=== PATIENT | male | born 1990 | race Caucasian/White ===

== ENCOUNTER → 2022-02-22 15:25 | Outpatient (BNVA) | payer BC, SELFPAY | PROVIDERS: Visit Provider Podiatrist Foot & Ankle Surgery | DX: M25.871 Other specified joint disorders, right ankle and foot (principal); M24.571 Contracture, right ankle | CPT/HCPCS: 73630 ==

== ENCOUNTER 2022-02-22 16:04 | Outpatient (CLI) | payer BC, SELFPAY | END 2022-02-22 16:05 | disposition home or self-care (01) | LOC: SPT 16:04 | PROVIDERS: Visit Provider Podiatrist Foot & Ankle Surgery | DX: Z46.89 Encounter for fitting and adjustment of other specified devices (principal); M79.671 Pain in right foot | CPT/HCPCS: 97760; L4397 ==

== ENCOUNTER → 2022-07-19 15:41 | Outpatient (BNVA) | payer BC, SELFPAY | PROVIDERS: Referring Provider Nurse Practitioner Family; Visit Provider Specialist | DX: S89.92XA Unspecified injury of left lower leg, initial encounter (principal); X58.XXXA Exposure to other specified factors, initial encounter; M17.12 Unilateral primary osteoarthritis, left knee; E66.01 Morbid (severe) obesity due to excess calories; Z68.44 Body mass index [BMI] 60.0-69.9, adult | CPT/HCPCS: 73560; 73565 ==

== ENCOUNTER 2022-07-31 12:32 | Outpatient (CLI) | payer BC, SELFPAY ==
--- NOTE | 2022-07-31 12:45 | MR_ITS ---
WS: [id number] MRI LEFT KNEE NONCONTRAST TECHNIQUE: Axial PD, coronal PD fat sat, coronal PD, sagittal PD, and sagittal PD fat-sat images obta ined. CLINICAL INFORMATION: left knee pain, rule out ACL tear COMPARISON: None. FINDINGS: Distal quadriceps and patella tendons are intact. Mild thinning of the ACL which may be due to prior chronic partial tear. Suggestion of a small partial tear at the distal tibial insertion. Normal PCL. Normal lateral meniscus. Radial tear involving the posterior horn medial meniscus extending to the me niscal root. Mild peripheral extrusion of the medial meniscus. Lateral subluxation of the patella whi ch may be positional. Recommend correlation for patellar instability. Medial and lateral retinaculum appear intact. Mild chondromalacia patella. Normal medial and lateral collateral ligaments. Normal po pliteal fossa. Mild soft tissue edema about the knee. MR/MR knee LT wo con* [id number] IMPRESSION: 1. Mild thinning of the ACL which may be due to prior chronic partial tear. Coon ggestion of a small partial tear at the distal tibial insertion. Normal PCL. 2. Radial tear involving the posterior horn medial meniscus extending to the m eniscal root. Blunting of the posterior horn with peripheral extrusion. 3. Normal medial and lateral collateral ligaments. 4. Mild chondromalacia patella. Slight lateral subluxation of the patella may be due to positioning. Recommend correlation for patellar instability. 5. Small suprapatellar effusion. Outbridge grading: grade II: blister-like swelling/fraying of articular cartila ge extending to surface
== END 2022-07-31 12:33 | disposition home or self-care (01) ==
PROVIDERS: PCP Nurse Practitioner Family; Visit Provider Specialist
DX: M25.562 Pain in left knee (principal); S83.242A Other tear of medial meniscus, current injury, left knee, initial encounter; X58.XXXA Exposure to other specified factors, initial encounter; M22.42 Chondromalacia patellae, left knee
CPT/HCPCS: 73721

== ENCOUNTER 2023-04-24 21:07 | Emergency (ER) | payer BC, SELFPAY ==
[2023-04-24 21:15] VITALS: BP 163/83; PULSE 110; RESP 17; TEMP 36.6; O2SAT 95; BMI 60.5
--- NOTE | 2023-04-24 21:19 | ED_ITS ---
HPI - URI/Sore Throat General: Chief Complaint: Upper Respiratory Infection Stated Complaint: [facility] Time Seen by Provider: 04/24/23 21:15 History of Present Illness: 32-year-old male patient comes in today for illness x 4 days. Patient appears nontoxic. Patient appears in no acute distress. Patient reports sore throat and nasal drainage. Patient is use [id number] medicines with minimal relief. Review of Systems General: Reports: 10 or more systems reviewed and unremarkable except in HPI and below Physical Exam Const: COMMON NORMALS: alert HENMT: COMMON NORMALS: normocephalic HEAD & SCALP: normocephalic THROAT: abnormal tonsil bilateral erythema, exudates and hypertrophy Neck/C-Spine: COMMON NORMALS: full ROM Resp: COMMON NORMALS: normal respiratory effort and clear to auscultation bilaterally AUSCULTATION: clear to auscultation bilaterally Cardio: COMMON NORMALS: regular rate RATE: regular rate GI: COMMON NORMALS: Soft to palpation PALPATION: Yes Soft to palpation Extremity: COMMON NORMALS: normal to inspection Neuro: SENSORIUM/ORIENTATION: Yes alert Skin: COMMON NORMALS: turgor normal GENERAL SKIN EXAM: turgor normal Course Vital Signs: Vital signs: Vital Signs Temperature 98 F 04/24/23 21:15 Pulse Rate 110 H 04/24/23 21:15 Respiratory Rate 17 04/24/23 21:15 Blood Pressure 163/83 04/24/23 21:15 Pulse Oximetry 95 04/24/23 21:15 Oxygen Delivery Me thod Room Air 04/24/23 21:15 MDM - URI/Sore Throat Medical Decision Making 32-year-old male patient comes in today for complaints of nasal drainage and sore throat. On exam patient's posterior pharynx is erythematous and with enlarged tonsils and exudate. Respirations are even lungs are clear to auscultation. Vital signs are normal except for some mild elevation in blood pressure and pulse. Differential diagnosis includes but not limited to tonsillitis, tonsillar abscess, respiratory infection, influenza, COVID, strep pharyngitis. Strep, COVID, influenza were negative. Patient was treated for tonsillitis with Augmentin and a dose of dexamethasone. Patient reported understanding of care plan need for follow-up or return to ER. Lab Data Laboratory Results Influenza Type A Ag negative (Negative) 04/24/23 21:42 Influenza Type B Ag negative (Negative) 04/24/23 21:42 SARS-CoV-2 Ag (Rapid) negative (Negative) 04/24/23 21:42 Group A Strep Rapid Negative (Negative) 04/24/23 21:42 No radiology studies performed this visit Discharge Plan Discharge Patient Disposition: Home Clinical Impression: Acute bacterial tonsillitis Condition: Stable Prescriptions: New amoxicillin-pot clavulanate 875-125 mg tablet 1 tab PO BID Qty: 14 0RF No Action (DME) night splint See Rx Instructions .Route .MEDSUPPLY Qty: 1 0RF Rx Instructions: As directed meloxicam 15 mg tablet 15 mg PO DAILY Qty: 20 0RF Rx Instructions: Take 1 tablet by mouth daily with food until gone Discharge Orders: Discharge ED (Routine); Ordered 04/24/23 Ordered By: Robby Azul Referrals: Nata Wheeler, TELETYPEWRITER OPERATOR [Primary Care Provider] - Discharge Diet: Usual diet Discharge Activity: Increase activity as tolerated Patient Instructions: Tonsillitis (ED) Activity Restrictions/Additional Instructions: Drink plenty of water and fluids. Take medications as directed. Follow-up with primary care in 1 week for recheck. Coding Level of Care Code ED [employer] R[employer] Manager for Edis Bishop
[2023-04-24 22:07] LABS: Rapid Strep A Test Negative (Negative)
[2023-04-24 22:14] LABS: Influenza A by IFA negative (Negative); Influenza B by IFA negative (Negative); SARS Covid-2 Antigen negative (Negative)
[2023-04-24] MEDS: amoxicillin-clav 875-125 mg Tablet 1 TAB PO (22:54)
[2023-04-24] MEDS: dexamethasone 10 mg/mL INJ IM (22:55)
[2023-04-24 22:59] VITALS: BP 150/102; PULSE 100; RESP 18; O2SAT 95
== END 2023-04-24 23:12 | disposition home or self-care (01) ==
PROVIDERS: Emergency Provider Nurse Practitioner Family; PCP Nurse Practitioner Family
DX: J03.80 Acute tonsillitis due to other specified organisms (principal); B96.89 Other specified bacterial agents as the cause of diseases classified elsewhere; Z11.52 Encounter for screening for COVID-19
CPT/HCPCS: 87081; 87426; 87804; 87880; 96372; 99284; J1100